=== PATIENT | female | born 1945 | race Hispanic/Latino ===

== ENCOUNTER 2020-09-11 14:04 | Observation (INO) | payer MEDICARE ==
[~2020-09-11] VITALS: Ht 162.6 cm; Wt 79.8 kg
[2020-09-11 14:51] LABS: BASOPHILS % (AUTO) 0.4 % (0.0-5.0); EOSINOPHILS % (AUTO) 0.1 % (0.0-8.0); HEMATOCRIT 38.1 % (36-48); LYMPHOCYTES % (AUTO) 13.9 % (21.0-51.0); MEAN CORPUSCULAR HEMOGLOBIN 30.2 pg (27.0-33.0); MEAN CORPUSCULAR HGB CONC 33.3 g/dL (32.0-36.0); MEAN CORPUSCULAR VOLUME 90.5 fL (79-99); MONOCYTES % (AUTO) 2.6 % (3.0-13.0); NEUTROPHILS % (AUTO) 81.6 % (40.0-77.0); PLATELET COUNT (AUTO) 299 K/uL (130-400); RED BLOOD CELL COUNT(AUTO) 4.21 MIL/uL (4.00-5.50); WHITE BLOOD COUNT (AUTO) 7.8 K/uL (4.8-10.8)
[2020-09-11 14:56] LABS: CREATININE 0.9 mg/dL (0.5-1.5); POTASSIUM 3.2 mmol/L (3.5-5.1)
[2020-09-11 14:59] LABS: INR 0.94 (0.85-1.15); PARTIAL THROMBOPLASTIN TIME 24.3 SEC (26.3-35.5); PROTHROMBIN TIME 10.2 SEC (9.6-11.6)
[2020-09-11 15:00] LABS: ALBUMIN 3.9 g/dL (3.5-5.0); BILIRUBIN,TOTAL 0.6 mg/dL (0.2-1.0); TOTAL PROTEIN, SERUM 7.5 g/dL (6.0-8.3)
[2020-09-11 15:41] LABS: B-TYPE NATRIURETIC PEPTIDE 57 pg/mL (0-100)
[2020-09-11] MEDS ORDERED: ONDANSETRON HCL 4 MG/2 ML VIAL ONE (15:46)
[2020-09-11] MEDS ORDERED: POTASSIUM CHLORIDE 20MEQ/100ML 100 ML IV PRN (16:45)
[2020-09-11] MEDS ORDERED: LIDOCAINE HCL-MPF 1% 2ML VIAL IV PRN (16:45)
[2020-09-11] MEDS ORDERED: IOHEXOL-350 75 ML VIAL IV ONE (16:49)
[2020-09-11 17:03] LABS: CHOLESTEROL 165 mg/dL (<200); HDL CHOLESTEROL 123 mg/dL (35-85); LDL DIRECT 84 mg/dL (0-99); TRIGLYCERIDES 95 mg/dL (30-200)
[2020-09-11 17:05] LABS: HEMOGLOBIN A1C 6.2 % (4.0-6.0)
[2020-09-11] MEDS ORDERED: LIDOCAINE HCL-MPF 1% 2ML VIAL ONE (17:35)
[2020-09-11] MEDS ORDERED: POTASSIUM CHLORIDE 20MEQ/100ML 100 ML IV ONE (17:36)
[2020-09-11] MEDS: ATORVASTATIN CALCIUM 20 MG TABLET PO SCH (20:38)
[2020-09-11 20:48] VITALS: BP 141/64
[2020-09-11 23:48] VITALS: BP 109/51
[2020-09-12 03:44] VITALS: BP 109/48
[2020-09-12 05:28] LABS: BASOPHILS % (AUTO) 0.2 % (0.0-5.0); EOSINOPHILS % (AUTO) 0.1 % (0.0-8.0); HEMATOCRIT 34.6 % (36-48); MEAN CORPUSCULAR HEMOGLOBIN 29.2 pg (27.0-33.0); MEAN CORPUSCULAR HGB CONC 32.4 g/dL (32.0-36.0); MEAN CORPUSCULAR VOLUME 90.3 fL (79-99); MONOCYTES % (AUTO) 7.6 % (3.0-13.0); NEUTROPHILS % (AUTO) 69.6 % (40.0-77.0); PLATELET COUNT (AUTO) 286 K/uL (130-400); RED BLOOD CELL COUNT(AUTO) 3.83 MIL/uL (4.00-5.50); RED CELL DISTRIBUTION WIDTH 12.2 % (11.0-15.5); WHITE BLOOD COUNT (AUTO) 8.3 K/uL (4.8-10.8)
[2020-09-12 06:05] LABS: ALBUMIN 3.5 g/dL (3.5-5.0); BILIRUBIN,TOTAL 0.5 mg/dL (0.2-1.0); CREATININE 0.9 mg/dL (0.5-1.5); POTASSIUM 3.4 mmol/L (3.5-5.1)
[2020-09-12 07:00] VITALS: BP 103/41
--- NOTE | 2020-09-12 08:45 | NUR ---
DYSPHAGIA TAVIA YOUNG. -S/S OF ASPIRATION. RECOMMEND REGULAR TEXTURE, THIN LIQUIDS, PILLS WHOLE WITH LIQUIDS. DERMATOLOGY PROCEDURAL PHYSICIAN COORDINATED WITH NURSE BA Addendum: 09/12/20 at 0943 by PAUL KNIGHT, SPT ST Amended: Links added.
[2020-09-12] MEDS ORDERED: GADODIAMIDE 10 MMOL/20 ML VIAL IV ONE (08:48)
[2020-09-12] MEDS: ASPIRIN 81MG TAB.CHEW PO SCH (10:31)
[2020-09-12 11:00] VITALS: BP 142/58
[2020-09-12 12:36] LABS: BILIRUBIN,URINE Negative (NEGATIVE); COLOR,URINE Yellow (YELLOW); GLUCOSE, URINE (UA) Negative (NEGATIVE); KETONES,URINE Negative (NEGATIVE); LEUKOCYTE ESTERASE ,URINE Small (NEGATIVE); NITRATE,URINE Negative (NEGATIVE); OCCULT BLOOD,URINE Negative (NEGATIVE); PROTEIN,URINE Negative (NEGATIVE)
[2020-09-12 12:37] LABS: AMPHET/METH SCREEN,URINE NEGATIVE (NEGATIVE); BARBITURATE SCREEN, URINE NEGATIVE (NEGATIVE); BENZODIAZEPINES SCREEN,URINE NEGATIVE (NEGATIVE); CANNABINOID SCREEN,URINE NEGATIVE (NEGATIVE); COCAINE SCREEN,URINE NEGATIVE (NEGATIVE); OPIATE SCREEN,URINE NEGATIVE (NEGATIVE); PHENCYCLIDINE SCREEN,URINE NEGATIVE (NEGATIVE)
[2020-09-12 12:40] LABS: APPEARANCE,URINE CLEAR (CLEAR)
[2020-09-12 13:04] LABS: RBC,URINE 0-1 /HPF (0-1)
[2020-09-12 13:05] LABS: BACTERIA,URINE Many /HPF (None Seen); SQUAMOUS EPITHELIAL CELL,UR Rare /HPF (0-2)
[2020-09-12 16:00] VITALS: BP 117/47
[2020-09-12 19:50] VITALS: BP 121/49
[2020-09-12] MEDS: ATORVASTATIN CALCIUM 20 MG TABLET PO SCH (20:03)
[2020-09-12 23:45] VITALS: BP 109/51
[2020-09-13 03:43] VITALS: BP 97/49
[2020-09-13 05:36] LABS: BASOPHILS % (AUTO) 0.5 % (0.0-5.0); EOSINOPHILS % (AUTO) 1.2 % (0.0-8.0); HEMATOCRIT 35.2 % (36-48); LYMPHOCYTES % (AUTO) 37.1 % (21.0-51.0); MEAN CORPUSCULAR HEMOGLOBIN 29.7 pg (27.0-33.0); MEAN CORPUSCULAR HGB CONC 32.4 g/dL (32.0-36.0); MEAN CORPUSCULAR VOLUME 91.7 fL (79-99); MONOCYTES % (AUTO) 8.6 % (3.0-13.0); NEUTROPHILS % (AUTO) 51.9 % (40.0-77.0); PLATELET COUNT (AUTO) 265 K/uL (130-400); RED BLOOD CELL COUNT(AUTO) 3.84 MIL/uL (4.00-5.50); RED CELL DISTRIBUTION WIDTH 12.3 % (11.0-15.5)
[2020-09-13 05:55] LABS: CREATININE 0.9 mg/dL (0.5-1.5); POTASSIUM 3.5 mmol/L (3.5-5.1)
[2020-09-13] MEDS: ASPIRIN 81MG TAB.CHEW PO SCH (08:22)
[2020-09-13 08:47] VITALS: BP 119/58
--- NOTE | 2020-09-13 10:52 | NUR ---
FOLLOW UP COMPLETED. Pt TOLERATING CURRENT P.O. DIET OF REGULAR TEXTURE, THIN LIQUIDS. NO OVERT S/S OF ASPIRATION AT THIS TIME. SKILLED SPEECH THERAPY IS NO WARRANTED AT THIS TIME. Addendum: 09/13/20 at 1054 by PAUL KNIGHT, [facility] ST Amended: Links added.
[2020-09-13 11:33] VITALS: BP 131/54
[2020-09-13] MEDS ORDERED: POTASSIUM CHLORIDE 20 MEQ ERTAB PO ONE (12:17)
[2020-09-13] MEDS ORDERED: ASPI-1005 PO (12:20)
[2020-09-13] MEDS ORDERED: POTASSIUM CHLORIDE 20 MEQ ERTAB PO SCH (13:40)
== END 2020-09-13 14:30 | disposition home or self-care (01) ==
LOC: EDH 14:04 → EDHIP 16:22 → 4DH 19:45
PROVIDERS: ADMIT Hospitalist; ATTEND Hospitalist
DX: K52.9 Noninfective gastroenteritis and colitis, unspecified (principal); R42 Dizziness and giddiness; N39.0 Urinary tract infection, site not specified; B96.20 Unspecified Escherichia coli [E. coli] as the cause of diseases classified elsewhere; E11.65 Type 2 diabetes mellitus with hyperglycemia; E87.1 Hypo-osmolality and hyponatremia; E87.6 Hypokalemia; I25.10 Atherosclerotic heart disease of native coronary artery without angina pectoris; I10 Essential (primary) hypertension; E78.5 Hyperlipidemia, unspecified; F03.90 Unspecified dementia, unspecified severity, without behavioral disturbance, psychotic disturbance, mood disturbance, and anxiety; F41.9 Anxiety disorder, unspecified; F32.9 Major depressive disorder, single episode, unspecified; E78.00 Pure hypercholesterolemia, unspecified; F17.200 Nicotine dependence, unspecified, uncomplicated; Z90.710 Acquired absence of both cervix and uterus; Z79.899 Other long term (current) drug therapy; Z88.0 Allergy status to penicillin
CPT/HCPCS: 36415 ×3; 70450; 70496; 70498; 70553; 71045; 80048; 80053 ×2; 80061; 80305; 81001; 82550; 83036; 83690; 83721; 83880; 84443; 84484; 85025 ×3; 85610; 85730; 87077; 87088; 87186; 92610; 93005; 93306; 93356; 97161; 99285; A9579; G0378 ×9; G8978; G8979; G8980; G8981; G8982; G8983; J2405; J3480; J3490; Q9967